=== PATIENT | male | born 2000 | race Caucasian/White ===

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

== ENCOUNTER 2025-01-25 18:59 | Emergency (ER) | payer OTHER, SELFPAY ==
--- NOTE | 2025-01-25 19:22 | EKG_ITS ---
[address] [address] Test Date: 2025-01-25 Pat Name: Dennis Trujillo Department: [facility] Room: Gender: Male Labor And Delivery Registered Nurse: JHONY : 2000 Requested By: Order Number: [id number] Reading MD: Yossi Loving Measurements Intervals [place] Rate: 69 P: 72 MD: 144 QRS: 33 QRSD: 104 T: 47 QT: 354 QTc: 379 Interpretive Statements Normal sinus rhythm with sinus arrhythmia Incomplete right bundle branch block Electronically Signed On 01-29-2025 9:19:21 PDT by Yossi Loving
--- NOTE | 2025-01-25 19:22 | DI.RAD.S_ITS ---
PROCEDURE: XR CHEST 1V INDICATIONS: Chest Pain TECHNIQUE: One view of the chest was acquired. COMPARISON: None. FINDINGS: Surgical changes and devices: None. Lungs and pleura: Lungs are clear. No pleural effusions or pneumothorax. Mediastinum: Mediastinal contours appear normal. Heart size is normal. Bones and chest wall: No suspicious bony lesions. Overlying soft tissues appear unremarkable. IMPRESSION: No acute cardiopulmonary abnormality is seen. Dictated by: Tony Alvarado M.D. on 01/25/2025 at 20:13 Approved by: Tony Alvarado M.D. on 01/25/2025 at 20:14
[2025-01-25 19:26] VITALS: BP 131/84; PULSE 63; RESP 16; TEMP 37; O2SAT 100; BMI 25.0
[2025-01-25 20:23] LABS: Add Manual Diff / Slide Review NO; Hematocrit 44.8 % (41-53); Hemoglobin 15.1 g/dL (13.5-17.5); Lymphocytes Absolute Auto 1400 /uL (1100-4500); Mean Corpuscular HGB Conc 33.8 % (30-36); Mean Corpuscular Hemoglobin 29.6 PG (26-34); Mean Corpuscular Volume 87.5 fL (80-100); Platelet Count 180 X10^3/uL (150-400)
[2025-01-25 20:34] LABS: INR 1.0 (0.9-1.3); Prothrombin Time 11.5 SECONDS (9.4-12.5)
[2025-01-25 20:37] LABS: PTT Partial Thromboplastin Tim 31 SECONDS (25.1-36.5)
[2025-01-25 20:41] LABS: Alanine Aminotransferase 13 IU/L (<50); Albumin 4.6 g/dL (3.5-5.0); Albumin Globulin Ratio 1.5 (1.0-2.8); Alkaline Phosphatase 62 U/L (38-126); Blood Urea Nitrogen 17 mg/dL (9-20); Calcium 9.1 mg/dL (8.4-10.2); Carbon Dioxide 27 mmol/L (22-32); Chloride 103 mmol/L (98-107); Creatine Kinase 60 U/L (55-170); Estimated Glomerular Filt Rate > 60 mL/min (>60); Globulin 3.0 g/dL (1.7-4.1); Glucose 84 mg/dL (70-99); HEMOLYSIS < 15 (0-50); Lipase 50 U/L (23-300); Magnesium 2.0 mg/dL (1.6-2.3); Potassium 3.9 mmol/L (3.4-5.1); Sodium 138 mmol/L (137-145); Total Protein 7.6 g/dL (6.3-8.2)
[2025-01-25 20:53] LABS: NT-proBNP (BNP-Adult 18+) 30 pg/mL (<125); Troponin I < 0.012 ng/mL (0.01-0.034)
[2025-01-25 21:52] VITALS: PULSE 63; RESP 16; O2SAT 99
[2025-01-25] MEDS: ALBUTEROL 2.5 MG/3 ML NEB (ADULT) INH (21:52)
--- NOTE | 2025-01-25 23:29 | ED.CHESTPAIN ---
HPI - Chest Pain General Chief Complaint: Chest Pain Stated Complaint: chest [id number] , pcp sent Time Seen by Provider: 01/25/25 21:31 Source: patient Mode of arrival: Ambulatory Limitations: no limitations History of Present Illness HPI narrative: 24-year-old male has 3 days duration left anterior sharp chest pain, no injury new activities. Not particularly worse with movement or deep breathing. No history of asthma or GERD. Does have family history of mother who had cardiac problems, need for pacemaker in her 20s, who from cardiac issues in her 40s. Patient has not had any previous cardiac specific treatments. No syncope or presyncope. He presented to the [place] [facility] who advised further evaluation here given duration of symptoms. No fevers or chills or cough. No history of blood clots to legs or lungs, no leg pain or swelling symptoms. 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 HEAD: Atraumatic. Normocephalic. EYES: Pupils equal round and reactive. Extraocular motions intact. No scleral icterus. No injection or drainage. ENT: Nose without bleeding, purulent drainage. Throat without erythema, tonsillar hypertrophy or exudate. Airway patent. NECK: Trachea midline. Non tender CARDIOVASCULAR: Regular rate and rhythm without murmurs, gallops, or rubs. RESPIRATORY: Clear to auscultation. Breath sounds equal bilaterally. No wheezes, rales, or rhonchi. GASTROINTESTINAL: Abdomen soft, non-tender, nondistended. EXTREMITIES: No edema or joint tenderness. BACK: Nontender without deformity or crepitance. No flank tenderness. NEURO: AOx3. Motor functions grossly nonfocal. SKIN: No rash or erythema of visible areas Initial Vital Signs Initial Vital Signs: Vital Signs Temperature 98.6 F 01/25/25 19:26 Pulse Rate 63 01/25/25 19:26 Respiratory Rate 16 01/25/25 19:26 Blood Pressure 131/84 01/25/25 19:26 Pulse Oximetry 100 01/25/25 19:26 Oxygen Delivery Method Room Air 01/25/25 19:26 Course Orders Ordered: ED Orders 01/25/25 19:22 XR chest 1V Stat EKG-12 Lead Stat 01/25/25 20:15 Complete Blood Count AUTO DIFF Stat Comprehensive Metabolic Panel Stat D Dimer Stat Lipase Stat Magnesium Stat NT-proBNP (BNP-Adult 18+) Stat PTT Partial Thromboplastin [place] Stat Prothrombin Time INR Stat Troponin & CK Cardiac Panel Stat Discontinued Medications Albuterol (Albuterol 2.5 Mg/3 Ml Neb (Adult)) 2.5 mg INH NOW ONE Stop: 01/25/25 21:32 Last Admin: 01/25/25 21:52 Dose: 2.5 mg Documented By: Albuterol (Albuterol 2.5 Mg/3 Ml Neb (Adult)) 2.5 mg INH NOW ONE Stop: 01/25/25 22:48 Last Admin: 01/25/25 23:47 Dose: Not Given Documented By: ALFREDITO Aspirin (Aspirin 81 Mg Chew Tab) 324 mg PO NOW ONE Stop: 01/25/25 19:23 Last Admin: 01/25/25 23:51 Dose: 324 mg Documented By: NGUYEN Vital Signs Vital signs: Vital Signs - 8 hr 01/25/25 21:52 01/26/25 00:04 Pulse Rate 63 57 L Respiratory Rate 16 17 Blood Pressure 113/77 Pulse Oximetry 99 98 Oxygen Delivery Method Room Air MDM - Chest Pain Lab Data Attestation: I reviewed the patient's lab results. Lab results narrative: White blood cell count 6100, hemoglobin 15, platelets adequate. Glucose 84. Renal function, serum CO2, electrolytes normal. Liver functions and lipase normal. Troponin negative/unmeasurable. BNP 30, not elevated. 01/25/25 20:15 01/25/25 20:15 Labs: Lab Results 01/25/25 Range/Units 20:15 WBC 6.1 (4.5-11.0) X10^3/uL RBC 5.12 (4.5-5.9) X10^6/uL Hgb 15.1 (13.5-17.5) g/dL Hct 44.8 (41-53) % MCV 87.5 (80-100) fL MCH 29.6 (26-34) PG MCHC 33.8 (30-36) % RDW 13.3 (11.6-14.8) % Plt Count 180 (150-400) X10^3/uL Neut % (Auto) 67.0 (50-75) % Lymph % (Auto) 23.9 L (25-40) % [place] % (Auto) 6.8 (3-14) % Eos % (Auto) 1.7 L (2-4) % Baso % (Auto) 0.6 (0-2) % Neut # (Auto) 4100 (4826-6336) /uL Lymph # (Auto) 1400 (3873-2033) /uL [place] # (Auto) 400 (0-900) /uL Eos # (Auto) 100 (0-450) /uL Baso # (Auto) 0 (0-100) /uL PT 11.5 (9.4-12.5) SECONDS INR 1.0 (0.9-1.3) APTT 31 (25.1-36.5) SECONDS D-Dimer 289 (<500) ng/ml Sodium 138 (137-145) mmol/L Potassium 3.9 (3.4-5.1) mmol/L Chloride 103 (98-107) mmol/L Carbon Dioxide 27 (22-32) mmol/L BUN 17 (9-20) mg/dL Creatinine 0.95 (0.66-1.25) mg/dL Estimated GFR > 60 (>60) mL/min BUN/Creatinine Ratio 17.9 (6-22) Glucose 84 (70-99) mg/dL Calcium 9.1 (8.4-10.2) mg/dL Magnesium 2.0 (1.6-2.3) mg/dL Total Bilirubin 0.5 (0.2-1.3) mg/dL AST 22 (17-59) IU/L ALT 13 (<50) IU/L Alkaline Phosphatase 62 (38-126) U/L Total Creatine Kinase 60 (55-170) U/L Troponin I < 0.012 (0.01-0.034) ng/mL NT-Pro-B Natriuret Pep 30 (<125) pg/mL Total Protein 7.6 (6.3-8.2) g/dL Albumin 4.6 (3.5-5.0) g/dL Globulin 3.0 (1.7-4.1) g/dL Albumin/Globulin Ratio 1.5 (1.0-2.8) Lipase 50 (23-300) U/L Imaging Data Chest x-ray: Radiologist's Impression: [address] [address] XRay Report Signed Patient: Dennis Trujillo MR#: [id number] : 2000 Acct:[id number] Age/Sex: 24 / M Date of Service: 01/25/25 Loc: ED Accession Number: [id number] Procedure: XR chest 1V Ordering Provider: Lauro Whitt MD PROCEDURE: XR CHEST 1V INDICATIONS: Chest Pain TECHNIQUE: One view of the chest was acquired. COMPARISON: None. FINDINGS: Surgical changes and devices: None. Lungs and pleura: Lungs are clear. No pleural effusions or pneumothorax. Mediastinum: Mediastinal contours appear normal. Heart size is normal. Bones and chest wall: No suspicious bony lesions. Overlying soft tissues appear unremarkable. IMPRESSION: No acute cardiopulmonary abnormality is seen. Dictated by: Tony Alvarado M.D. on 01/25/2025 at 20:13 Approved by: Tony Alvarado M.D. on 01/25/2025 at 20:14 ECG Data Attestation: I personally reviewed and interpreted this ECG as follows: Interpretation: 1924, normal sinus rhythm with sinus arrhythmia, rate 69, incomplete right bundle branch block noted. AK 144, QRS 104, QTC 379. MDM Narrative Medical decision making narrative: 24-year-old male with 3 days duration left anterior somewhat sharp chest pain, equivocal if it is truly pleuritic, no history of DVT/PE, no new activities. No tenderness on direct palpation, perhaps some left anterior discomfort on resistance extension left upper extremity against resistance. Possibly musculoskeletal. Screening chest x-ray, EKG, labs sent. DDx consider musculoskeletal, bronchospasm, pneumonia, pneumothorax, pleural effusion, ROSS, ACS, PE, other. Oral aspirin. EKG with incomplete right bundle branch block pattern, none for comparison. Chest x-ray no acute changes. See radiology report. Trial of albuterol, did not seem to change symptoms. Lab data: White blood cell count 6100, hemoglobin 15, platelets adequate. Glucose 84. Renal function, serum CO2, electrolytes normal. Liver functions and lipase normal. Troponin negative/unmeasurable. BNP 30, not elevated. D-dimer pending. D-dimer negative. Further follow up as an outpatient, given contact information for local cardiology Dr. Marcano, might need referral from primary care provider. Discharged home. Discharge Plan Departure Patient Disposition: Home Clinical Impression: Chest pain Activity Restrictions/Additional Instructions: 3 days duration left anterior chest pain unclear cause. No pain with direct palpation, but possibly some discomfort with resistance against pressure about stretch hands on the left side, possibly musculoskeletal in nature. Chest x-ray and EKG and blood testing did not show any acute abnormalities. No evidence for heart attack for example, nor any infection of the lungs or collapse lungs or obvious lung pathology, normal cardiac/heart silhouette and size noted. Consider bronchospasm as cause of your chest discomfort, however you did not seem to have significant improvement with breathing treatment albuterol. He did report history of mother who had young age onset of need for pacemaker and cardiac related age 40. Family history of cardiac problems noted. No emergency cardiac situation identified thus far today. Consider further evaluation as an outpatient with cardiology. Contact information provided for local erp technical lead Dr. Marcano, to consider further workup as an outpatient for now. You might need referral from your primary care provider. Consider calling his office during regular hours tomorrow, to see if outpatient further workup can be arranged at timely manner. Prescriptions: No Action No Known Home Medications Referrals: Lazaro Benz MD [Primary Care Provider, [facility]] Stand Alone Forms: Patient Portal/API
[2025-01-25] MEDS: ASPIRIN 81 MG CHEW TAB 324 MG PO (23:51)
[2025-01-26 00:04] VITALS: BP 113/77; PULSE 57; RESP 17; O2SAT 98
== END 2025-01-26 00:07 | disposition home or self-care (01) ==
PROVIDERS: Emergency Provider Emergency Medicine; PCP Family Medicine
DX: R07.9 Chest pain, unspecified (principal)
CPT/HCPCS: 36415; 71045; 80053; 82550; 83690; 83735; 83880; 84484; 85025; 85379; 85610; 85730; 93005; 94640; 99284; J7613